=== PATIENT | male | born 1950 | race American Indian/Alaskan Native ===

== ENCOUNTER 2021-04-28 19:46 | Emergency (ER) | payer MEDICARE ==
[2021-04-28] MEDS ORDERED: KETOROLAC 60 MG/2 ML INJ IM ONE (20:38)
[2021-04-28] MEDS ORDERED: HYDROcodone/ACETAMINOPHEN 5-325 MG TAB PO ONE (20:38)
[2021-04-28] MEDS ORDERED: ONDANSETRON 4 MG ODT TAB PO ONE (20:38)
--- NOTE | 2021-04-28 20:39 | Emergency Department Report ---
ED Headache HPI - General Chief Complaint: Chest Pain Stated Complaint: HEADACHE X3/BLOOD PRESSURE Time Seen by Provider: 04/28/21 20:25 Source: patient Exam Limitations: no limitations - History of Present Illness Initial Comments: 71-year-old male with a past medical history CVA, hypertension, diabetes, elevated cholesterol presents to the hospital with complaints of headache for 3 to 4 days. Patient states he was referred here after going to a local clinic due to abnormal EKG. Patient denies chest pain. He states for the last several days he has had a left-sided headache that has been constant but fluctuates in intensity. He denies nausea, vomiting, focal weakness, focal numbness, or unsteady gait. He does complain of pain with walking secondary to ongoing right hip and right ankle pain. Patient denies recent fall or trauma. Patient suspects he has arthritis of his right ankle and right hip. Patient denies photophobia or history of previous headaches/migraines. He does not take anticoagulants. Patient takes aspirin on occasion and denies recent use Allergies/Adverse Reactions: Allergies No Known Allergies Allergy (Verified 06/26/16 00:50) Home Medications: Ambulatory Orders Aspirin [Aspirin BABY CHEW TAB] 81 mg PO QDAY #30 tab.chew 06/28/16 Simvastatin (Nf) [Zocor TAB] 20 mg PO QHS #30 tablet 06/28/16 lisinopriL [Zestril TAB] 40 mg PO QDAY #30 tablet 06/28/16 metFORMIN [Glucophage] 500 mg PO BID #60 tablet 06/28/16 ED Review of Systems ROS: Stated complaint: HEADACHE X3/BLOOD PRESSURE Other details as noted in HPI Comment: All other systems reviewed and negative ED Past Medical Hx - Past Medical History Hx Hypertension: Yes Hx CVA: Yes (3 - 4 YRS AGO) Hx Diabetes: Yes Additional medical history: HERNIA - Surgical History Additional Surgical History: TONSIL OUT BROKEN BONES ORAL SURGERY - Social History Smoking Status: Current Every Day Smoker - Medications Home Medications: Home Medications Medication Instructions Recorded Confirmed Last Taken Type Aspirin [Aspirin BABY CHEW TAB] 81 mg PO QDAY #30 tab.chew 06/28/16 Unknown Rx Simvastatin (Nf) [Zocor TAB] 20 mg PO QHS #30 tablet 06/28/16 Unknown Rx lisinopriL [Zestril TAB] 40 mg PO QDAY #30 tablet 06/28/16 Unknown Rx metFORMIN [Glucophage] 500 mg PO BID #60 tablet 06/28/16 Unknown Rx ED Physical Exam - General Limitations: No Limitations - Other Other exam information: General: No acute distress Head: Atraumatic Eyes: normal appearance, pupils equal reactive to light ENT: Moist mucous membranes Neck: Normal appearance, no midline tenderness Chest: Clear to auscultation bilaterally CV: Regular rate and rhythm Abdomen: Soft, normal bowel sounds, nontender, nondistended, no rebound or guarding Back: Normal inspection Extremity: Normal inspection, full range of motion Neuro: Alert O x 3, no facial asymmetry, speech clear (patient states no change), 5/5 upper and lower extremity equal bilaterally. GCS 15 Psych: Appropriate behavior Skin: No rash ED Course Vital Signs 04/28/21 04/28/21 20:05 21:49 Temperature 98.4 F 98.6 F Pulse Rate 77 62 Respiratory 18 14 Rate Blood Pressure 192/93 Blood Pressure 177/85 [Left] O2 Sat by Pulse 98 98 Oximetry - Consultations Consultation #1: 04/28/21 22:01 case d/w Dr Cardenas Neurosurgeon who recommend immediate transfer 04/28/21 22:12 [facility] transfer [facility] contacted 04/28/21 22:14 case d/w [facility] transfer service 04/28/21 22:19 Dr Watson trauma attending accepted the patient 04/28/21 22:56 It will take at least 3 hours for [facility] become available to transfer patient to [facility]. I rediscussed the case with Dr. Watson and we agreed that helicopter transport would be better to initiate faster transport ED Medical Decision Making - Lab Data Result diagrams: 04/28/21 20:43 04/28/21 20:43 Lab Results 04/28/21 04/28/21 04/28/21 Range/Units 20:43 20:43 21:45 WBC 4.3 L (4.5-11.0) K/mm3 RBC 4.93 (3.65-5.03) M/mm3 Hgb 16.2 H (11.8-15.2) gm/dl Hct 48.0 H (35.5-45.6) % MCV 97 H (84-94) fl MCH 33 H (28-32) pg MCHC 34 (32-34) % RDW 13.8 (13.2-15.2) % Plt Count 168 (140-440) K/mm3 Lymph % (Auto) 36.2 H (13.4-35.0) % [place] % (Auto) 8.6 H (0.0-7.3) % Eos % (Auto) 1.8 (0.0-4.3) % Baso % (Auto) 0.8 (0.0-1.8) % Lymph # (Auto) 1.6 (1.2-5.4) K/mm3 [place] # (Auto) 0.4 (0.0-0.8) K/mm3 Eos # (Auto) 0.1 (0.0-0.4) K/mm3 Baso # (Auto) 0.0 (0.0-0.1) K/mm3 Seg Neutrophils % 52.6 (40.0-70.0) % Seg Neutrophils # 2.3 (1.8-7.7) K/mm3 PT 13.3 (12.2-14.9) Sec. INR 0.91 (0.87-1.13) APTT 32.8 (24.2-36.6) Sec. Sodium 142 (137-145) mmol/L Potassium 4.6 (3.6-5.0) mmol/L Chloride 106.9 (98-107) mmol/L Carbon Dioxide 22 (22-30) mmol/L Anion Gap 18 mmol/L BUN 10 (9-20) mg/dL Creatinine 0.9 (0.8-1.3) mg/dL Estimated GFR > 60 ml/min BUN/Creatinine Ratio 11 % Glucose 116 H (75-100) mg/dL Calcium 9.6 (8.4-10.2) mg/dL Troponin T < 0.010 (0.00-0.029) ng/mL - EKG Data -: EKG Interpreted by Me (Old anterior infarct) EKG shows normal: sinus rhythm, ST-T waves (no stemi) Rate: normal - EKG Data When compared to previous EKG there are: no significant change (Compared to EKG prior to arrival) - Radiology Data Radiology results: report reviewed t. CT head/brain wo con INDICATION: headache X 1 WEEK. TECHNIQUE: All CT scans at this location are performed using CT dose reduction for ALARA by means of automated exposure control. COMPARISON: None available. FINDINGS: There is a left cerebral convexity mixed density subdural hematoma measuring 1.7 cm in greatest [id number] dimension. There is rightward midline shift of about 1.5 cm with questionable entrapment of the right lateral ventricle. There is no appreciable brain edema. IMPRESSION: 1. Large left cerebral convexity subdural hematoma with rightward midline shift and questionable right ventricular entrapment. - Medical Decision Making 71-year-old male presents to the hospital with "nontraumatic" headache for several days. CT suggestive of subdural but patient continues to deny head injury. Patient is alert and oriented x3 with GCS of 15 and has been accepted to [facility] trauma service. EKG shows old anterior infarct which is unchanged compared to EKG prior to arrival. Patient denies chest pain and therefore findings likely not acute. Troponin negative. Coags unremarkable Patient significant other brought to the bedside and informed of diagnosis. They are not however, they do live together Critical Care Time: Yes Critical care time in (mins) excluding proc time.: 35 Critical care attestation.: If time is entered above; I have spent that time in minutes in the direct care of this critically ill patient, excluding procedure time. ED Disposition Clinical Impression: Subdural hematoma, Hypertension Disposition: 02 SHORT TERM HOSPITAL Is pt being admited?: Yes Condition: Stable Instructions: Hypertension (ED) Time of Disposition: 22:41 (Transferred to [facility] accepted by Dr. Watson)
[2021-04-28 21:18] LABS: Hemoglobin 16.2 gm/dl (11.8-15.2); Mean Corpuscular HGB Conc 34 % (32-34); Mean Corpuscular Volume 97 fl (84-94); Platelet Count 168 K/mm3 (140-440); Red Blood Count 4.93 M/mm3 (3.65-5.03); Red Cell Distribution Width 13.8 % (13.2-15.2)
[2021-04-28 21:19] LABS: BUN/Creatinine Ratio 11; Blood Urea Nitrogen 10 mg/dL (9-20); Calcium 9.6 mg/dL (8.4-10.2); Hemolysis Index 19
[2021-04-28 21:28] LABS: Lymphocytes % (Auto) 36.2 % (13.4-35.0); Monocytes % (Auto) 8.6 % (0.0-7.3)
[2021-04-28 21:29] LABS: Basophils % (Auto) 0.8 % (0.0-1.8); Eosinophils # (Auto) 0.1 K/mm3 (0.0-0.4); Eosinophils % (Auto) 1.8 % (0.0-4.3); Lymphocytes # (Auto) 1.6 K/mm3 (1.2-5.4); Monocytes # (Auto) 0.4 K/mm3 (0.0-0.8)
--- NOTE | 2021-04-28 21:54 | Cat Scan Report ---
CT head/brain wo con INDICATION: headache X 1 WEEK. TECHNIQUE: All CT scans at this location are performed using CT dose reduction for ALARA by means of automated e xposure control. COMPARISON: None available. FINDINGS: There is a left cerebral convexity mixed density subdural hematoma measuring 1.7 cm in greatest side- to-side dimension. There is rightward midline shift of about 1.5 cm with questionable entrapment of t he right lateral ventricle. There is no appreciable brain edema. IMPRESSION: 1. Large left cerebral convexity subdural hematoma with rightward midline shift and questionable righ t ventricular entrapment. Findings discussed with Dr. Herzog at 8:50 PM. Signer Name: Matheus Grande MD Signed: 04/28/2021 9:50 PM Workstation Name: [id number]
[2021-04-28 22:06] LABS: INR 0.91 (0.87-1.13); Partial Thromboplastin Time 32.8 Sec. (24.2-36.6)
[2021-04-28 23:05] VITALS: BP 179/80
--- NOTE | 2021-05-04 14:41 | Electrocardiograph Report ---
[facility] Test Date: 2021-04-28 Test Time: 20:54:24 Pat Name: RIRI FRANKLIN Department: Room: Gender: M [employer] Operator: : [id number] Requested By: JESSIE MERIDA Order Number: [id number] Reading MD: Giuseppe Gracia Measurements Intervals [place] Rate: 63 P: 76 CA: 189 QRS: 73 QRSD: 77 T: 68 QT: 370 QTc: 379 Interpretive Statements Sinus rhythm Anterior infarct, old No previous ECG available for comparison Electronically Signed On 05-04-2021 14:41:40 EDT by Giuseppe Gracia
== END 2021-04-28 23:54 | disposition short-term general hospital (02) ==
LOC: ED 19:46
DX: I62.00 Nontraumatic subdural hemorrhage, unspecified (principal); I10 Essential (primary) hypertension; Z86.73 Personal history of transient ischemic attack (TIA), and cerebral infarction without residual deficits; E11.8 Type 2 diabetes mellitus with unspecified complications; K46.9 Unspecified abdominal hernia without obstruction or gangrene; Z98.890 Other specified postprocedural states; F17.200 Nicotine dependence, unspecified, uncomplicated
CPT/HCPCS: 36415; 70450; 80048; 84484; 85025; 85610; 85730; 93005; 96372; 99291; J1885; Q0162